=== PATIENT | male | born 1955 | race Caucasian/White ===

== ENCOUNTER → 2016-07-16 | Outpatient (CLI) | payer OTHER ==
[~2016-07-16] MED LIST: AMOX1TAB61 PO; CIPR500T87 PO; DOCU-30 PO; ENOX40SY4 SQ; FENT1PAT77 TD; ONDA4TAB7 PO; OXYC10TA6 PO; OXYC1TAB8 PO; RIVA15TA PO; RIVA20TA PO; ZOLP-413 PO; ZOLP10TA PO; trazadone
== END | disposition home or self-care (01) ==
LOC: RAD 10:49
PROVIDERS: ATTEND Internal Medicine Hematology & Oncology
DX: C64.2 Malignant neoplasm of left kidney, except renal pelvis (principal); C79.71 Secondary malignant neoplasm of right adrenal gland; C79.72 Secondary malignant neoplasm of left adrenal gland; R91.8 Other nonspecific abnormal finding of lung field; J98.11 Atelectasis; Q34.0 Anomaly of pleura; J90 Pleural effusion, not elsewhere classified; R59.0 Localized enlarged lymph nodes; Z90.5 Acquired absence of kidney
CPT/HCPCS: 71250; 74176

== ENCOUNTER → 2016-07-28 | Outpatient (CLI) | payer OTHER | END | disposition home or self-care (01) | LOC: CFH 13:38 | PROVIDERS: ATTEND Internal Medicine Hematology & Oncology | DX: C64.2 Malignant neoplasm of left kidney, except renal pelvis (principal); C79.51 Secondary malignant neoplasm of bone ==

== ENCOUNTER → 2016-11-01 | Outpatient (CLI) | payer OTHER | END | disposition home or self-care (01) | LOC: CFH 08:42 | PROVIDERS: ATTEND Radiology Radiation Oncology | DX: C79.71 Secondary malignant neoplasm of right adrenal gland (principal); C79.51 Secondary malignant neoplasm of bone; R13.10 Dysphagia, unspecified | CPT/HCPCS: 70490; 71250 ==

== ENCOUNTER → 2016-11-18 | Outpatient (CLI) | payer OTHER | END | disposition home or self-care (01) | LOC: PETCFH 11:32 | PROVIDERS: ATTEND Radiology Radiation Oncology | DX: C79.51 Secondary malignant neoplasm of bone (principal); C79.71 Secondary malignant neoplasm of right adrenal gland; C64.2 Malignant neoplasm of left kidney, except renal pelvis; R13.10 Dysphagia, unspecified | CPT/HCPCS: 78306; A9503 ==

== ENCOUNTER → 2016-11-24 | Outpatient (CLI) | payer OTHER | END | disposition home or self-care (01) | LOC: RAD 09:49 | PROVIDERS: ATTEND Radiology Radiation Oncology | DX: C64.9 Malignant neoplasm of unspecified kidney, except renal pelvis (principal) | CPT/HCPCS: 74230 ==

== ENCOUNTER → 2016-11-24 | Outpatient (CLI) | payer OTHER | END | disposition home or self-care (01) | LOC: ROC 12:51 | PROVIDERS: ATTEND Radiology Radiation Oncology | DX: Z51.89 Encounter for other specified aftercare (principal); C79.51 Secondary malignant neoplasm of bone; C79.71 Secondary malignant neoplasm of right adrenal gland; R13.10 Dysphagia, unspecified | CPT/HCPCS: 99213; G0463 ==

== ENCOUNTER → 2016-11-30 | Outpatient (CLI) | payer OTHER | END | disposition home or self-care (01) | LOC: CFH 14:18 | PROVIDERS: ATTEND Radiology Radiation Oncology | DX: C79.51 Secondary malignant neoplasm of bone (principal); M48.54XA Collapsed vertebra, not elsewhere classified, thoracic region, initial encounter for fracture; M48.56XA Collapsed vertebra, not elsewhere classified, lumbar region, initial encounter for fracture; M51.24 Other intervertebral disc displacement, thoracic region; M48.04 Spinal stenosis, thoracic region; M47.894 Other spondylosis, thoracic region; C64.2 Malignant neoplasm of left kidney, except renal pelvis; C79.71 Secondary malignant neoplasm of right adrenal gland; R13.10 Dysphagia, unspecified | CPT/HCPCS: 72146 ==